=== PATIENT | male | born 1950 | race Caucasian/White ===

== ENCOUNTER 2024-09-17 15:44 | Emergency (ER) | payer OTHER ==
[~2024-09-17] VITALS: Ht 175.3 cm; Wt 91.0 kg
[~2024-09-17 15:44] MED LIST: ENOX40DI8 SQ; MULT-1146 MT; POLY17PO43 PO; SENN1TAB35 PO; SULF1TAB48 MT; TOPUD PO
[2024-09-17 16:01] VITALS: O2SAT 99
[2024-09-17 16:06] VITALS: BP 187/91; PULSE 73; RESP 18; TEMP 98.4; O2SAT 100
[2024-09-17 17:23] LABS: HEMATOCRIT. 35.7 % (42.0-52.0); MEAN CORPUSCULAR HEMOGLOBIN 30.9 pg (28.0-32.0); MEAN CORPUSCULAR HGB CONC 33.7 g/dL (31.0-37.0); MEAN CORPUSCULAR VOLUME 91.7 fL (80.0-94.0); MEAN PLATELET VOLUME 8.3 fl (7.4-10.4); PLATELET 278 x1000/uL (130-400); RED BLOOD CELL COUNT 3.89 mill/uL (4.7-6.1); RED CELL DISTRIBUTION WIDTH 13.7 % (11.6-14.6); WHITE BLOOD COUNT 12.4 x1000/uL (4.5-11.0)
[2024-09-17 17:24] LABS: DIFFERENTIAL COMMENT 1
[2024-09-17 17:25] LABS: CHLORIDE 96 mEq/L (98-107); POTASSIUM 4.1 mEq/L (3.5-5.1); SODIUM 130 mEq/L (136-145)
[2024-09-17 17:26] LABS: CARBON DIOXIDE 30 mEq/L (21-32)
[2024-09-17 17:27] LABS: CALCIUM 9.1 mg/dL (8.7-10.4)
[2024-09-17 17:32] LABS: GLUCOSE 95 mg/dL (70-105); UREA NITROGEN BLOOD 16 mg/dL (9-23)
[2024-09-17 19:21] LABS: PLATELET ESTIMATE NORMAL
== END 2024-09-17 18:49 | disposition home or self-care (01) ==
LOC: ER 15:44
DX: K40.20 Bilateral inguinal hernia, without obstruction or gangrene, not specified as recurrent (principal); Z96.649 Presence of unspecified artificial hip joint; Z79.899 Other long term (current) drug therapy
CPT/HCPCS: 36415; 80048; 85025; 99283